=== PATIENT | male | born 1995 | race African-American/Black ===

== ENCOUNTER 2019-01-03 01:33 | Emergency (ER) | payer OTHER ==
[2019-01-03 01:46] VITALS: BP 137/86; PULSE 70; TEMP 98.4; BMI 24.5
--- NOTE | 2019-01-03 01:49 | PDOC ---
History of Present Illness - General Chief Complaint: Non EmpBld/Body Flud Exposure Stated Complaint: CONDOM BROKE, WANTS TO BE CHECKED OUT Time Seen by Provider: 01/03/19 01:40 - History of Present Illness Initial Comments: 01/03/19 02:07 This otherwise healthy 23-year-old man presents with history of possible exposure to sexually transmitted infection: Patient had sexual intercourse with a female partner earlier today. Condom broke during intercourse. This evening , patient was told by his brother that the woman had a history of sexually transmitted infection. Type of infection and whether she had been treated for the infection is unknown. Patient himself has no history of treatment for or symptoms of sexually transmitted infection. He states that he was tested for HIV a few months ago (negative). He does not want to be tested for HIV today. He currently has no abdominal pain/dysuria/penile discharge or follow or lesions. Patient denies previous medical condition; on no daily medication NO KNOWN DRUG ALLERGIES Denies smoking Denies daily alcohol or recreational drug use Past History - Past Medical History Allergies/Adverse Reactions: Allergies Allergy/AdvReac Type Severity Reaction Status Date / Time pollen extracts Allergy Verified 01/03/19 01:40 Home Medications: Ambulatory Orders NK [No Known Home Medication] 01/03/19 Asthma: Yes ( A CHILD) - Immunization History Immunization Up to Date: Yes - Suicide/Smoking/Psychosocial Hx Smoking History: Never smoked Have you smoked in the past 12 months: No Hx Alcohol Use: No Drug/Substance Use Hx: No Substance Use Type: None Review of Systems - Review of Systems Able to Perform ROS?: Yes *Physical Exam - Physical Exam Comments: GENERAL: Adult male, alert and oriented 3, in no acute distress HEAD: Normal with no signs of trauma. EYES: PERRLA, EOMI, sclera anicteric, conjunctiva clear. ABDOMEN:.normal bowel sounds No guarding,tenderness or rebound.No masses No distention. PELVIC: Normal male external genitalia; no penile or scrotal lesions; no penile discharge EXTREMITIES: Normal range of motion, no edema. No clubbing or cyanosis. No erythema, or tenderness. NEUROLOGICAL: Cranial nerves II through XII grossly intact. Normal speech. No focal neurological deficits. Medical Decision Making - Medical Decision Making This 23-year-old man, otherwise healthy, may have been exposed to sexually transmitted infection: Had sexual intercourse earlier today during which condom broke . The patient reportedly learned that his female partner may have had a sexually transmitted infection in the past. This was not confirmed by the partner or any other source. However, the patient is concerned and wants testing and treatment for Chlamydia/gonorrhea. He states that he has been recently(a few months ago,) been tested for HIV and was negative and does not want to be tested now.. The patient has no symptoms. Exam as noted is normal. *DC/Admit/Observation/Transfer Diagnosis at time of Disposition: Exposure to sexually transmitted disease (STD) - Discharge Dispostion Condition at time of disposition: Stable - Referrals - Patient Instructions Printed Discharge Instructions: How to Detect and Treat STDs Additional Instructions: Rest; drink plenty of water Follow-up with your doctor or return here if you have burning with urination/ penile discharge/fever/rash - Post Discharge Activity
[2019-01-03] MEDS ORDERED: AZITHROMYCIN 500 MG TABLET PO ONE (02:01)
[2019-01-03] MEDS ORDERED: AZITHROMYCIN 250 MG TABLET ONE (02:05)
== END 2019-01-03 02:15 | disposition home or self-care (01) ==
LOC: FER 01:33
DX: Z11.3 Encounter for screening for infections with a predominantly sexual mode of transmission (principal)
CPT/HCPCS: 36415; 87491; 87591; 99281-25

== ENCOUNTER 2019-01-23 15:15 | Emergency (ER) | payer OTHER ==
[2019-01-23 15:44] VITALS: BP 110/73; PULSE 64; TEMP 98.3; BMI 24.3
--- NOTE | 2019-01-23 17:22 | PDOC ---
Documentation entered by Marley Lizarraga SCRIBE, acting as scribe for Navin Thompson MD. Navin Thompson MD: This documentation has been prepared by the Zia lopez Adrianna, SCRIBE, under my direction and personally reviewed by me in its entirety. I confirm that the documentation accurately reflects all work, treatment, procedures, and medical decision making performed by me. History of Present Illness - General Chief Complaint: Injury Stated Complaint: LEFT THIGH BRUISE Time Seen by Provider: 01/23/19 16:07 - History of Present Illness Initial Comments: The patient is a 23 year old female, with no significant PMH, who presents to the ED for evaluation for left thigh pain for 2 days. Patient reports falling last night and hitting the back of his thigh on a curb last night. Patient had developed an ecchymosis on the back of the thigh which he notes is tender to touch. 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 He denies any numbness or tingling of the LLE. Patient otherwise denies any acute complaints. Allergies: Pollen extracts Surgical History: None reported Social History: Denies EtOH, tobacco, or illicit drug use Past History - Past Medical History Allergies/Adverse Reactions: Allergies Allergy/AdvReac Type Severity Reaction Status Date / Time pollen extracts Allergy Verified 01/03/19 01:40 Home Medications: Ambulatory Orders NK [No Known Home Medication] 01/03/19 Asthma: Yes ( A CHILD) COPD: No - Immunization History Immunization Up to Date: Yes - Suicide/Smoking/Psychosocial Hx Smoking History: Never smoked Have you smoked in the past 12 months: No Hx Alcohol Use: No Drug/Substance Use Hx: No Substance Use Type: None Review of Systems - Review of Systems Comments:: GENERAL/CONSTITUTIONAL: No fever or chills. No weakness. HEAD, EYES, EARS, NOSE AND THROAT: No change in vision. No ear pain or discharge. No sore throat. CARDIOVASCULAR: No chest pain or shortness of breath. RESPIRATORY: No cough, wheezing, or hemoptysis. GASTROINTESTINAL: No nausea, vomiting, diarrhea or constipation. GENITOURINARY: No dysuria, frequency, or change in urination. MUSCULOSKELETAL: +Left posterior thigh bruise that is tender to touch. +Left posterior thigh pain that is exacerbated with standing or walking. No joint swelling or pain. No neck or back pain. SKIN: No rash NEUROLOGIC: No headache, vertigo, loss of consciousness, or change in strength/ sensation. ENDOCRINE: No increased thirst. No abnormal weight change. HEMATOLOGIC/LYMPHATIC: No anemia, easy bleeding, or history of blood clots. ALLERGIC/IMMUNOLOGIC: No hives or skin allergy. *Physical Exam - Vital Signs Last Vital Signs Temp Pulse Resp BP Pulse Ox 98.3 F 64 15 110/73 100 01/23/19 15:32 01/23/19 15:32 01/23/19 15:32 01/23/19 15:32 01/23/19 15:32 - Physical Exam Comments: GENERAL: Awake, alert, and fully oriented, in no acute distress HEAD: No signs of trauma EYES: PERRLA, EOMI, sclera anicteric, conjunctiva clear ENT: Auricles normal inspection, hearing grossly normal, nares patent, oropharynx clear without exudates. Moist mucosa NECK: Normal ROM, supple, no lymphadenopathy, JVD, or masses LUNGS: Breath sounds equal, clear to auscultation bilaterally. No wheezes, and no crackles HEART: Regular rate and rhythm, normal S1 and S2, no murmurs, rubs or gallops ABDOMEN: Soft, nontender, normoactive bowel sounds. No guarding, no rebound. No masses EXTREMITIES: +Ecchymosis and hematoma of the left posterior thigh that is approximately 8 x 5cm in diameter. +Mild tenderness to palpation of the left posterior thigh. No distal edema. Pulses are full, without sensory deficits. Gait is stable and unimpaired. Normal range of motion. No clubbing or cyanosis. No cords. NEUROLOGICAL: Cranial nerves II through XII grossly intact. Normal speech, normal gait SKIN: Warm, Dry, normal turgor, no rashes or lesions noted. *DC/Admit/Observation/Transfer Diagnosis at time of Disposition: Contusion Qualifiers: Encounter type: initial encounter Contusion area: thigh Laterality: left Qualified Code(s): S70.12XA - Contusion of left thigh, initial encounter - Discharge Dispostion Disposition: HOME Condition at time of disposition: Good Decision to Admit order: No - Referrals - Patient Instructions Printed Discharge Instructions: DI for Contusion, DI for Hematoma (Bruise), How to Apply an Kelvin Wrap - Post Discharge Activity Forms/Work/School Notes: Back to Work
== END 2019-01-23 16:34 | disposition home or self-care (01) ==
LOC: FER 15:15
DX: S70.12XA Contusion of left thigh, initial encounter (principal); J45.909 Unspecified asthma, uncomplicated; W18.39XA Other fall on same level, initial encounter; Y93.89 Activity, other specified; Y92.410 Unspecified street and highway as the place of occurrence of the external cause
CPT/HCPCS: 99281-25

== ENCOUNTER 2020-10-25 16:28 | Emergency (ER) | payer SELFPAY ==
[2020-10-25 16:35] VITALS: BP 123/76; PULSE 86; TEMP 99.8; BMI 27.1
== END 2020-10-25 17:07 | disposition home or self-care (01) ==
LOC: FER 16:28
DX: U07.1 COVID-19 (principal)
CPT/HCPCS: 99283-25; C9803; U0003; U0005

== ENCOUNTER 2022-07-05 21:39 | Emergency (ER) | payer SELFPAY ==
[2022-07-05 21:47] VITALS: BP 129/72; PULSE 68; RESP 16; TEMP 99.5; BMI 24.4
[2022-07-05] MEDS ORDERED: METHOCARBAMOL 500 MG TABLET PO ONE (21:58)
[2022-07-05] MEDS ORDERED: IBUPROFEN 600 MG TABLET (FP) PO ONE ×2 (21:58→22:01)
[2022-07-05] MEDS ORDERED: LIDOCAINE 5% TOPICAL PATCH TP ONE (21:59)
[2022-07-05] MEDS ORDERED: LIDOCAINE PATCH REMOVAL MC SCH (22:00)
[2022-07-05] MEDS ORDERED: METHOCARBAMOL 500 MG TABLET ONE (22:01)
[2022-07-05] MEDS ORDERED: LIDOCAINE 5% TOPICAL PATCH ONE (22:01)
== END 2022-07-05 22:05 | disposition home or self-care (01) ==
LOC: FER 21:39
DX: M54.50 Low back pain, unspecified (principal)
CPT/HCPCS: 99283-25

== ENCOUNTER 2023-04-15 17:37 | Emergency (ER) | payer SELFPAY ==
[2023-04-15 17:58] VITALS: BP 139/87; PULSE 65; RESP 16; TEMP 98.4; BMI 24.7
== END 2023-04-15 18:01 | disposition home or self-care (01) ==
LOC: FER 17:37
DX: R09.81 Nasal congestion (principal); R05.9 Cough, unspecified; R50.9 Fever, unspecified; R68.83 Chills (without fever); J06.9 Acute upper respiratory infection, unspecified; Z20.822 Contact with and (suspected) exposure to COVID-19
CPT/HCPCS: 0241U-QW; 99283-25